=== PATIENT | female | born 1985 | race American Indian/Alaskan Native ===

== ENCOUNTER 2020-10-01 14:47 | Emergency (ER) | payer MEDICAID ==
--- NOTE | 2020-10-01 15:38 | Event Note ---
ED Screening Note Date of service: 10/01/20 Time: 15:37 ED Screening Note: 34-year-old -[place] female presents to the emergency room for 3-day history of abdominal pain. Patient states that she has been bleeding for over a month. This initial assessment/diagnostic orders/clinical plan/treatment(s) is/are subject to change based on patients health status, clinical progression and re- assessment by fellow clinical providers in the ED. Further treatment and workup at subsequent clinical providers discretion. Patient/guardian urged not to elope from the ED as their condition may be serious if not clinically assessed and managed. Initial orders include:
[2020-10-01 16:04] LABS: Basophils % (Auto) 0.6 % (0.0-1.8); Eosinophils % (Auto) 0.2 % (0.0-4.3); Hematocrit 31.7 % (30.3-42.9); Hemoglobin 10.3 gm/dl (10.1-14.3); Lymphocytes # (Auto) 1.2 K/mm3 (1.2-5.4); Lymphocytes % (Auto) 19.6 % (13.4-35.0); Mean Corpuscular HGB Conc 33 % (30-34); Mean Corpuscular Volume 81 fl (79-97); Monocytes # (Auto) 0.6 K/mm3 (0.0-0.8); Platelet Count 298 K/mm3 (140-440); Red Blood Count 3.92 M/mm3 (3.65-5.03); Red Cell Distribution Width 18.2 % (13.2-15.2)
[2020-10-01 16:21] LABS: Alanine Aminotransferase 13 units/L (7-56); Albumin 3.9 g/dL (3.9-5); Blood Urea Nitrogen 8 mg/dL (7-17); Hemolysis Index 21
[2020-10-01 16:22] LABS: BUN/Creatinine Ratio 13
[2020-10-01 20:48] LABS: Bilirubin,Urine NEG (Negative); Blood,Urine LG (Negative); Color,Urine Yellow (Yellow); Hyaline Casts,Urine 2 /LPF; Mucus,Urine 3+ /HPF; Protein,Urine <15 mg/dL mg/dL (Negative); Urobilinogen,Urine < 2.0 mg/dL (<2.0)
[2020-10-01 20:49] LABS: HCG Qualitative,Urine Negative (Negative)
[2020-10-01] MEDS ORDERED: MORPHINE 4 MG/1 ML INJ IV ONE (21:11)
[2020-10-01] MEDS ORDERED: ONDANSETRON 4 MG/2 ML INJ IV ONE (21:11)
[2020-10-01] MEDS ORDERED: SODIUM CHLORIDE 0.9% 1000 ML 1,000 ML IV ONE (21:11)
--- NOTE | 2020-10-01 22:40 | Cat Scan Report ---
CT ABDOMEN AND PELVIS WITHOUT CONTRAST HISTORY: Abdominal pain COMPARISON: None TECHNIQUE: Routine abdominal and pelvic CT exam performed without contrast. Lack of intravenous cont rast limits evaluation of the vascular and solid organs.. All CT scans at this location are performed using CT dose reduction for ALARA by means of automated exposure control. FINDINGS: CT ABDOMEN: Lung Bases: No significant abnormality. Liver: No significant abnormality. Biliary: No significant abnormality. Spleen: No significant abnormality. Unenlarged. Pancreas: No significant abnormality. Adrenals: No significant abnormality. Kidneys: No significant abnormality. Lymphatics: No lymphadenopathy. Vasculature: No significant abnormality. Bowel/Peritoneum: No significant abnormality. No free air. No free fluid. Normal appendix. CT PELVIC: : There is a 4.2 cm left ovarian cyst with some internal hyperattenuation likely indicating a hemor rhagic cyst. Lymphatics: No lymphadenopathy. Osseous Structures: No aggressive appearing osseous lesions. Additional Findings: None IMPRESSION: 1. No acute findings. 2. Probable 4 cm hemorrhagic left ovarian cyst. Signer Name: Ernesto Napoles MD Signed: 10/01/2020 10:35 PM Workstation Name: [id number]
--- NOTE | 2020-10-01 23:41 | Emergency Department Report ---
ED Abdominal Pain HPI - General Chief Complaint: Abdominal Pain Stated Complaint: ABD PAIN/PELVIC PAIN Source: patient Mode of arrival: Ambulatory Limitations: No Limitations - History of Present Illness Initial Comments: Patient is a 34-year-old -[place] female with no past medical history who presents to the ED with complaint of acute onset persistent severe diffuse l ower abdominal pain for the last 3 days with nausea and vomiting. Patient states that she has also had intermittent dysmenorrhea with vaginal bleeding for over 1 month. Patient states that she initially thought that the pain was due to gas buildup but that the pain got worse in the last 2 days. Patient denies dizziness, syncope, diarrhea, fever, chills, cough, dysuria, urinary frequency and urgency, vaginal discharge, chest pain, shortness of breath, back pain, hematemesis or hematochezia and constipation. MD Complaint: abdominal pain (diffuse lower abdomen), other (nausea and vomiting) -: Sudden, days(s) (3) Location: LLQ, suprapubic Radiation: LLQ, suprapubic Migration to: no migration Severity: severe Severity scale (0 -10): 9 Quality: cramping, aching, sharp Consistency: constant Improves With: nothing Worsens With: nothing Associated Symptoms: denies other symptoms, nausea, vomiting, other (vaginal bleeding). denies: diarrhea, fever, chills, constipation, dysuria, hematemesis, hematochezia, melena, hematuria, anorexia, syncope - Related Data Previous Rx's Medication Instructions Recorded Last Taken Type Naproxen 500 mg PO Q12H PRN #30 tablet 10/01/20 Unknown Rx Ondansetron [Zofran Odt] 4 mg PO Q6HR PRN #15 tab.rapdis 10/01/20 Unknown Rx traMADoL [Ultram] 50 mg PO Q6HR PRN #12 tablet 10/01/20 Unknown Rx Allergies Allergy/AdvReac Type Severity Reaction Status Date / Time iodine Allergy Itching Verified 10/01/20 15:17 shellfish derived Allergy Itching Verified 10/01/20 15:17 ED Review of Systems ROS: Stated complaint: ABD PAIN/PELVIC PAIN Other details as noted in HPI Constitutional: denies: chills, fever Eyes: denies: eye pain, eye discharge, vision change ENT: denies: ear pain, throat pain Respiratory: denies: cough, shortness of breath, wheezing Cardiovascular: denies: chest pain, palpitations Endocrine: no symptoms reported Gastrointestinal: abdominal pain (diffuse lower abdomen), nausea, vomiting. denies: diarrhea Genitourinary: denies: urgency, dysuria, discharge Musculoskeletal: denies: back pain, joint swelling, arthralgia Skin: denies: rash, lesions Neurological: denies: headache, weakness, paresthesias Psychiatric: denies: anxiety, depression Hematological/Lymphatic: denies: easy bleeding, easy bruising ED Past Medical Hx - Past Medical History Previous Medical History?: No - Surgical History Past Surgical History?: No - Medications Home Medications: Home Medications Medication Instructions Recorded Confirmed Last Taken Type Naproxen 500 mg PO Q12H PRN #30 tablet 10/01/20 Unknown Rx Ondansetron [Zofran Odt] 4 mg PO Q6HR PRN #15 tab.rapdis 10/01/20 Unknown Rx traMADoL [Ultram] 50 mg PO Q6HR PRN #12 tablet 10/01/20 Unknown Rx ED Physical Exam - General Limitations: No Limitations General appearance: alert, in no apparent distress - Head Head exam: Present: atraumatic, normocephalic, normal inspection - Eye Eye exam: Present: normal appearance, PERRL, EOMI Pupils: Present: normal accommodation - ENT ENT exam: Present: normal exam, normal orophraynx, mucous membranes moist, TM's normal bilaterally, normal external ear exam - Neck Neck exam: Present: normal inspection, full ROM - Respiratory Respiratory exam: Present: normal lung sounds bilaterally. Absent: respiratory distress, wheezes, rales, rhonchi, chest wall tenderness, accessory muscle use, decreased breath sounds, prolonged expiratory - Cardiovascular Cardiovascular Exam: Present: regular rate, normal rhythm, normal heart sounds. Absent: systolic murmur, diastolic murmur, rubs, gallop - GI/Abdominal GI/Abdominal exam: Present: soft, tenderness (Palpable suprapubic and left lower quadrant tenderness, no guarding or rebound), normal bowel sounds. Absent: guarding, rebound, hyperactive bowel sounds, hypoactive bowel sounds, organomegaly - Bi-manual exam: Present: other (Pelvic exam deferred) - Extremities Exam Extremities exam: Present: normal inspection, full ROM, normal capillary refill - Back Exam Back exam: Present: normal inspection, full ROM. Absent: tenderness, CVA tenderness (R), CVA tenderness (L), muscle spasm, paraspinal tenderness - Neurological Exam Neurological exam: Present: alert, oriented X3, CN II-XII intact, normal gait, reflexes normal - Psychiatric Psychiatric exam: Present: normal affect, normal mood - Skin Skin exam: Present: warm, dry, intact, normal color. Absent: rash ED Course Vital Signs 10/01/20 15:19 Temperature 99.4 F Pulse Rate 83 Respiratory 16 Rate Blood Pressure 101/54 O2 Sat by Pulse 99 Oximetry ED Medical Decision Making - Lab Data Result diagrams: 10/01/20 15:47 10/01/20 15:47 - Radiology Data Radiology results: report reviewed, image reviewed Findings [place] [id number] Cat Scan Report Signed Patient: SAM NGUYEN MR#: [id number] : 1985 Acct:[id number] Age/Sex: 34 / F ADM Date: 10/01/20 Loc: ED Attending Dr: Ordering Physician: KWESI GODWIN Date of Service: 10/01/20 Procedure(s): CT abdomen pelvis wo con Accession Number(s): [id number] cc: KWESI GODWIN CT ABDOMEN AND PELVIS WITHOUT CONTRAST HISTORY: Abdominal pain COMPARISON: None TECHNIQUE: Routine abdominal and pelvic CT exam performed without contrast. Lack of intravenous contrast limits evaluation of the vascular and solid organs.. All CT scans at this location are pe rformed using CT dose reduction for ALARA by means of automated exposure control. FINDINGS: CT ABDOMEN: Lung Bases: No significant abnormality. Liver: No significant abnormality. Biliary: No significant abnormality. Spleen: No significant abnormality. Unenlarged. Pancreas: No significant abnormality. Adrenals: No significant abnormality. Kidneys: No significant abnormality. Lymphatics: No lymphadenopathy. Vasculature: No significant abnormality. Bowel/Peritoneum: No significant abnormality. No free air. No free fluid. Normal appendix. CT PELVIC: : There is a 4.2 cm left ovarian cyst with some internal hyperattenuation likely indicating a hemorrhagic cyst. Lymphatics: No lymphadenopathy. Osseous Structures: No aggressive appearing osseous lesions. Additional Findings: None IMPRESSION: 1. No acute findings. 2. Probable 4 cm hemorrhagic left ovarian cyst. Signer Name: Ernesto Napoles MD Signed: 10/01/2020 10:35 PM Workstation Name: [id number] Transcribed By: LEE ANN Dictated By: Ernesto Napoles MD Electronically Authenticated By: Ernesto Napoles MD Signed Date/Time: 10/01/202234 DD/ 33 TD/TT: - Medical Decision Making This is a 34-year-old -[place] female with no past medical history who presents to the ED with complaint of acute onset persistent severe diffuse lower abdominal pain for the last 3 days with nausea and vomiting. Patient states that she has also had intermittent dysmenorrhea with vaginal bleeding for over 1 month. Patient states that she initially thought that the pain was due to gas buildup but that the pain got worse in the last 2 days. In the ED, patient is alert and oriented x3 and is not in distress. Patient was treated for pain in the ED and also given antiemetics in the ED. lab test results were reviewed and are all nonactionable except for UTI in urinalysis. Abdomen pelvis CT scan without contrast showed no acute findings except for a probable 4 cm hemorrhagic left ovarian cyst. On reevaluation, patient's pain is well controlled medications. Patient was discharged home on pain medication and given a referral to the [facility] physician Dr. Cantu for further evaluation and follow- up in 2 to 3 days. Patient was advised return to the ED immediately if symptoms get worse. - Differential Diagnosis Kidney stones; Diverticulitis; Appendicitis; Ovarian cyst; UTI Critical care attestation.: If time is entered above; I have spent that time in minutes in the direct care of this critically ill patient, excluding procedure time. ED Disposition Clinical Impression: Hemorrhagic cyst of left ovary, Nausea and vomiting in adult patient Abdominal pain Qualifiers: Abdominal location: lower abdomen, unspecified Qualified Code(s): R10.30 - Lower abdominal pain, unspecified Disposition: DC-01 TO HOME OR SELFCARE Is pt being admited?: No Does the pt Need Aspirin: No Condition: Stable Instructions: Abdominal Pain (ED), Abdominal Pain, Adult, [id number], Nausea and Vomiting, Adult, [id number], Ovarian Cyst, [id number] Additional Instructions: Lab test results were reviewed and are all nonactionable. The abdomen pelvis CT scan without contrast showed left ovarian cyst which is suspected to be hemorrhagic. Therefore take medication with food, drink plenty of fluids and follow-up with your [facility] physician in 3 to 5 days for reevaluation. Return to the ED immediately if symptoms get worse. Prescriptions: Naproxen 500 mg PO Q12H PRN #30 tablet PRN Reason: Pain , Severe (7-10) traMADoL [Ultram] 50 mg PO Q6HR PRN #12 tablet PRN Reason: Pain Ondansetron [Zofran Odt] 4 mg PO Q6HR PRN #15 tab.rapdis PRN Reason: Nausea Referrals: MARC CANTU MD [Staff Physician] - 3-5 Days Time of Disposition: 23:41 Print Language: KINYARWANDA
[2020-10-02 06:26] VITALS: BP 115/68
== END 2020-10-02 00:33 | disposition home or self-care (01) ==
LOC: EDBD → ED 14:47
DX: N83.202 Unspecified ovarian cyst, left side (principal); Z91.018 Allergy to other foods; Z91.09 Other allergy status, other than to drugs and biological substances
CPT/HCPCS: 36415; 74176; 80053; 81001; 81025; 85025; 87086; 96361; 96374; 96375; 99284; J2270; J2405; J7030